=== PATIENT | male | born 1980 | race Caucasian/White ===

== ENCOUNTER 2019-02-28 19:31 | Emergency (ER) | payer SELFPAY ==
[2019-02-28 19:40] VITALS: BP 133/85
[2019-02-28] MEDS ORDERED: KETOROLAC 30 MG/ML VIAL IM STA (20:20)
[2019-02-28] MEDS ORDERED: BUPIVACAINE 0.5% PF 10 ML VIAL SUBQ STA (20:20)
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
--- NOTE | 2019-02-28 20:36 | XRAY Report ---
Reason: injury Procedure Date: 02/28/2019 Accession Number: [id number] / [id number] Procedure: XR - Finger(s) RT CPT Code: FULL RESULT: EXAM: RIGHT/LEFT 1st/2nd/3rd/4th/5th DIGIT RADIOGRAPHY EXAM DATE: 02/28/2019 08:10 PM. CLINICAL HISTORY: Injury. COMPARISON: None. TECHNIQUE: 3 views. FINDINGS: Bones: An acute displaced transverse fracture is seen through the proximal phalanx of right fifth digit with mild palmar angulation and anterior displacement between the fracture fragments. Joints: Normal. No subluxations. Soft Tissues: Normal. No soft tissue swelling. IMPRESSION: An acute displaced transverse fracture through the proximal phalanx of right fifth digit with mild palmar angulation in anterior displacement Overlying soft tissue swelling. RADIA
--- NOTE | 2019-02-28 22:20 | XRAY Report ---
Reason: finger splint placed Procedure Date: 02/28/2019 Accession Number: [id number] / [id number] Procedure: XR - Finger(s) RT CPT Code: FULL RESULT: EXAM: RIGHT FIFTH DIGIT RADIOGRAPHY EXAM DATE: 02/28/2019 10:07 PM. CLINICAL HISTORY: Post reduction. COMPARISON: FINGER(S) RT 02/28/2019 7:52 PM. TECHNIQUE: 3 views. FINDINGS: Bones: Fracture in the proximal metaphysis of the proximal phalanx shows improved alignment. There is volar displacement of the distal fracture fragment measuring 3 mm. Mild impaction is noted. Minimal residual dorsal angulation of the distal fragment is seen. Joints: No dislocation seen. Joints appear intact. Soft Tissues: Soft tissue swelling. Splint is noted. IMPRESSION: 1. Improved alignment of proximal phalanx fracture with 3 mm volar displacement of the distal fragment, mild impaction, and minimal residual dorsal angulation of the distal fragment. RADIA
== END 2019-02-28 22:46 | disposition home or self-care (01) ==
LOC: ED 19:31
DX: S62.616A Displaced fracture of proximal phalanx of right little finger, initial encounter for closed fracture (principal); V17.0XXA Pedal cycle driver injured in collision with fixed or stationary object in nontraffic accident, initial encounter; Y93.55 Activity, bike riding; Y92.410 Unspecified street and highway as the place of occurrence of the external cause
CPT/HCPCS: 26725; 73140; 96372; 99282; 99283

== ENCOUNTER 2024-01-12 17:43 | Emergency (ER) | payer OTHER ==
[2024-01-12 17:56] VITALS: BP 136/86
[2024-01-12] MEDS: oxyCODONE 5 MG TABLET PO STA ×2 (18:09→19:21)
[2024-01-12] MEDS: MELOXICAM 7.5 MG TABLET PO STA (18:10)
--- NOTE | 2024-01-12 19:15 | XRAY Report ---
PROCEDURE: Shoulder 2+V RT INDICATIONS: R should pain s/p fall TECHNIQUE: 3 views of the shoulder were acquired. COMPARISON: None. FINDINGS: Bones: No acute fractures or dislocations. No suspicious bony lesions. Visualized ribs appear inta ct. Soft tissues: No suspicious soft tissue calcifications. The visualized lungs are within normal limi ts. IMPRESSION: No acute osseous abnormality. If there is clinical concern or persistent symptoms, additional imaging such as repeat radiographs or advanced imaging (e.g. CT, MRI) may be helpful for further evaluation. Reviewed by: Juice Erazo MD on 01/12/2024 7:14 PM PDT Approved by: Juice Erazo MD on 01/12/2024 7:14 PM PDT Station ID: [id number]
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
[2024-01-12 20:04] VITALS: O2SAT 98
== END 2024-01-12 19:59 | disposition home or self-care (01) ==
LOC: ED 17:43
DX: S09.90XA Unspecified injury of head, initial encounter (principal); S43.401A Unspecified sprain of right shoulder joint, initial encounter; W20.8XXA Other cause of strike by thrown, projected or falling object, initial encounter; W17.2XXA Fall into hole, initial encounter; Y93.89 Activity, other specified; Y99.0 Civilian activity done for income or pay
CPT/HCPCS: 1040M; 70450; 72125; 73030; 99284; A9270

== ENCOUNTER 2024-06-05 08:00 | Outpatient (CLI) | payer SELFPAY ==
[2024-06-05 17:41] LABS: BASOPHILS # (AUTO) 0.1 10^3/uL (0.0-0.1); BASOPHILS % (AUTO) 0.9 %; EOSINOPHILS # (AUTO) 0.1 10^3/uL (0.0-0.7); EOSINOPHILS % (AUTO) 1.8 %; HCT - HEMATOCRIT 42.6 % (42.0-52.0); HGB - HEMOGLOBIN 13.5 g/dL (14.0-18.0); LYMPHOCYTES # (AUTO) 2.7 10^3/uL (1.5-3.5); LYMPHOCYTES % (AUTO) 35.3 %; MEAN CORPUSCULAR HEMOGLOBIN 25.9 pg (27.0-31.0); MEAN CORPUSCULAR HGB CONC 31.7 g/dL (32.0-36.0); MEAN CORPUSCULAR VOLUME 81.8 fL (80.0-94.0); MEAN PLATELET VOLUME 10.8 fL (7.4-11.4); MONOCYTES # (AUTO) 0.6 10^3/uL (0.0-1.0); MONOCYTES % (AUTO) 8.1 %; NEUTROPHILS # (AUTO) 4.1 10^3/uL (1.5-6.6); NEUTROPHILS % (AUTO) 53.8 %; PLT - PLATELET COUNT 260 10^3/uL (130-450); RED BLOOD COUNT 5.21 10^6/uL (4.70-6.10); RED CELL DISTRIBUTION WIDTH 13.8 % (12.0-15.0); WHITE BLOOD COUNT 7.6 x10^3/uL (4.8-10.8)
[2024-06-05 17:55] LABS: ALBUMIN 4.4 g/dL (3.2-5.5); BILIRUBIN,TOTAL 0.4 mg/dL (0.2-1.0); CALCIUM 9.6 mg/dL (8.5-10.3); CREATININE 0.8 mg/dL (0.6-1.3); POTASSIUM 3.9 mmol/L (3.5-4.5); TOTAL PROTEIN 6.6 g/dL (6.4-8.9)
== END 2024-06-05 23:59 | disposition home or self-care (01) ==
LOC: LAB.N 08:00
PROVIDERS: ATTEND Family Medicine
DX: R10.12 Left upper quadrant pain (principal)
CPT/HCPCS: 36415; 80053; 83690; 85025